=== PATIENT | female | born 1960 | race Asian ===

== ENCOUNTER 2016-12-07 00:51 | Observation (INO) | payer OTHER ==
[~2016-12-07] VITALS: Ht 157.5 cm; Wt 63.5 kg
[2016-12-07] VITALS (12 sets, daily range): BP systolic 107–137; BP diastolic 55–63; PULSE 50–64; RESP 16–20; Ht 157.5 cm; Wt 63.5 kg
[2016-12-07] MEDS ORDERED: ACETAMINOPHEN 325 MG TAB PO PRN (02:30)
[2016-12-07] MEDS ORDERED: AMLODIPINE 5 MG TAB PO SCH (02:30)
[2016-12-07] MEDS ORDERED: ONDANSETRON 4 MG INJ IV PRN (02:30)
[2016-12-07] MEDS ORDERED: HYDROCODONE/APAP (5/325) TAB PO PRN (02:30)
[2016-12-07] MEDS ORDERED: POLYETHYLENE GLYCOL 17 GM PACKET PO PRN (02:30)
[2016-12-07] MEDS ORDERED: GLUCAGON 1 MG INJ IM PRN (03:10)
[2016-12-07] MEDS ORDERED: GLUCOSE GEL 15 GRAM TUBE BUCCAL PRN (03:10)
[2016-12-07] MEDS ORDERED: DEXTROSE 50% 50 ML SYRINGE IV PRN ×2 (03:10)
[2016-12-07] MEDS ORDERED: GLUCOSE GEL 15 GRAM TUBE PO PRN ×2 (03:10)
[2016-12-07] MEDS: INSULIN ASPART [NOVOLOG] 3 ML PEN SC SCH ×5 (08:00→21:00)
[2016-12-07] MEDS ORDERED: RANOLAZINE (SR) 500 MG TAB PO SCH (09:00)
[2016-12-07 10:50] LABS: BASOPHILS % 0.2 % (0.0-2.0); EOSINOPHILS # 0.1 10^3/ul (0.0-0.5); EOSINOPHILS % 1.2 % (0.0-7.0); HEMATOCRIT 33.3 % (37.0-47.0); LYMPHOCYTES # 2.2 10^3/ul (0.8-2.9); LYMPHOCYTES % 38.5 % (15.0-51.0); MEAN CORPUSCULAR HEMOGLOBIN 30.6 pg (29.0-33.0); MEAN CORPUSCULAR VOLUME 92.5 fl (82.0-101.0); MEAN PLATELET VOLUME 10.4 fl (7.4-10.4); MONOCYTE # 0.3 10^3/ul (0.3-0.9); MONOCYTES % 5.4 % (0.0-11.0); NEUTROPHIL # 3.1 10^3/ul (1.6-7.5); NEUTROPHILS % 54.4 % (39.0-77.0); PLATELET COUNT 177 10^3/UL (140-415); RED CELL DISTRIBUTION WIDTH 12.6 % (11.5-14.5); WHITE BLOOD COUNT 5.7 10^3/ul (4.8-10.8)
[2016-12-07 11:07] LABS: CHOL/HDL RATIO 3.9 RATIO
[2016-12-07 11:08] LABS: ALBUMIN 3.8 g/dl (3.3-4.9); ALBUMIN/GLOBULIN RATIO 1.08; BILIRUBIN,INDIRECT 0.6 mg/dl (0-1.1); BILIRUBIN,TOTAL 0.6 mg/dl (0.2-1.3); CALCIUM 9.2 mg/dl (8.4-10.2); CREATININE 0.92 mg/dl (0.44-1.00); TOTAL PROTEIN 7.3 g/dl (6.1-8.1)
--- NOTE | 2016-12-07 13:44 | HP ---
Date/Time of Note Date/Time of Note DATE: 12/07/16 TIME: 12:30 Assessment/Plan VTE Prophylaxis VTE Prophylaxis Intervention: SCD's Lines/Catheters IV [facility]ter [facility]from [facility] Saline Lock Urinary Cath still in place: No Assessment/Plan Assessment/Plan 56-year-old female with: 1. Chest pressure, shortness of breath, acute on chronic, multiple cardiac workup in the past already, unfortunately with a lot of risk factors, she will be getting a stress test today, depending on results she may need an angiogram versus observation overnight with aggressive medical management. Continue current medications Cardiology following Follow-up on 2D echocardiogram results, cardiac enzymes negative and EKG within normal. 2. Coronary artery disease, status post coronary artery bypass surgery, continue current maintenance medications 3. Recent episode of TIA, approximately 5 months ago, patient has been placed on Aggrenox along with Plavix that she already was on, no residual deficit, continue current medications. 4. Hypertension: Continue home medications 5. Hyperlipidemia: Check fasting lipid panel and continue statin therapy 6. Diabetes mellitus, insulin requiring, according to family patient has been having elevated blood sugars. Because her insurance lapsed, apparently she was taking her insulin differently to make it last a little longer. A1c 9.1 will resume her insulin regimen or titrate for better control prophylaxis. Prophylaxis: SCDs for DVT prophylaxis, Pepcid for GI prophylaxis. Disposition: Stress test today, continue medical management HPI/ROS Admit Date/Time Admit Date/Time Dec 07, 2016 at 00:51 Hx of Present Illness Chief complaint: Substernal chest pressure and shortness of breath History of presenting illness: This is a 56-year-old female with hypertension, hyperlipidemia, diabetes mellitus, known coronary artery disease, status post coronary artery bypass surgery, subsequently had 3 more angiograms since then with the latest one done in June 2015 with stent placement, patient was told that she had small vessel disease, she had a recent stress test approximately 5 months ago at her primary personal lines underwriter office and was told that she needed another angiogram the patient has declined so far who presented at [facility] with complaint of worsening chest pressure and shortness of breath. She reports that she has been having exacerbation of her chest pressure over the past 3-4 days. She has been having some amount of chest pressure and dyspnea on exertion since her CABG in 2014. Periodically it worsened, yesterday indeed worsened even more, she had nausea but no vomiting, no diaphoresis. She did not take her sublingual nitro but did call 911 and went to [place]. At [place] she was evaluated by emergency department physician, also by cardiology according to notes, patient reports that she was told that her pain was probably not cardiac in nature however given her multiple risk factors and previous history she will need additional risk stratification and cardiac workup. Patient was therefore transferred to [facility] within network for her cardiac workup. Currently she still having the chest pressure with some shortness of breath. She reports that she has chest pressure with movement chest pressure when sitting up, dyspnea on exertion mainly with chest pressure while walking. She reported that to holding something against her chest does improve her symptoms a little bit. Currently she is denying diaphoresis or nausea or vomiting. EKG here at [facility] shows a normal sinus rhythm with some sinus arrhythmia, cardiac enzymes have been negative 2, one at [place] and one done here at [facility] greater than 8 hours apart. Echocardiogram has been done and pending, stress test also pending. Dr Olsen from cardiology saw the patient and per discussion with cardiology at this point the plan is to do a stress test, if there is large areas of ischemia patient will need a subsequent angiogram, if they are some nonspecific or equivocal findings she will be treated medically aggressively, either way she will stay overnight tonight. We will also plan on a better control of her comorbidities including a diabetes mellitus/blood sugars, hypertension/blood pressure. No fevers, cough, wheezing. She does report postnasal drip especially at night and sometimes nasal congestion. ROS Constitutional: chills, nausea Respiratory: pain, shortness of breath Gastrointestinal: no complaints Genitourinary: no complaints Musculoskeletal: no complaints Skin: no complaints Neurologic: no complaints Endocrine: no complaints Psychological: no complaints PMH/Family/Social Past Medical History Coronary artery disease, status post angiogram 1 prior to bypass surgery, status post coronary artery bypass surgery, status post 3 angiogram post bypass surgery with stent placement. Patient had a recent stress test approximately 5 months ago which apparently warranted subsequent angiogram but patient declined. Hypertension Hyperlipidemia Diabetes mellitus, insulin requiring Chronic chest pain Past Surgical History Status post coronary artery bypass surgery 01/02 Status post cholecystectomy in 2001 Status post ovarian cyst resection remotely Family History Significant Family History: no pertinent family hx Social History Alcohol Use: none Smoking Status: Never smoker Drug Use: none Exam/Review of Systems Vital Signs Vitals Vital Signs Date Time Temp Pulse Resp B/P Pulse Ox O2 Delivery O2 Flow Rate FiO2 12/07/16 12:00 53 12/07/16 08:20 Nasal Cannula 2.0 12/07/16 07:51 98.1 20 107/62 99 Intake and Output 12/06/16 12/06/16 12/07/16 15:00 23:00 07:00 Intake Total 50 ml Balance 50 ml Exam Constitutional: alert, oriented, well developed Respiratory: clear to auscultation, normal air movement Cardiovascular: nl pulses, regular rate and rhythm Gastrointestinal: non-tender, soft Musculoskeletal: nl extremities to inspection Extremities: normal pulses, other (No edema, clubbing or cyanosis) Neurological: DIVING JUDGE II-XII intact, nl mental status, nl speech, nl strength Labs Result Diagram: 12/07/1695612/07/1657 Medications Medications Current Medications Aspirin (Aspirin) 81 mg DAILY PO ; Start 12/07/16 at 09:00 Acetaminophen (Tylenol Tab) 650 mg Q6H PRN PO PAIN AND OR ELEVATED TEMP; Start 12/07/16 at 02:30 Ondansetron HCl (Zofran Inj) 4 mg Q4H PRN IV NAUSEA AND/OR VOMITING; Start at 02:30 Acetaminophen/ Hydrocodone Bitart ([place] (5/325)) 1-2 tabs Q4H PRN PO PAIN Last administered on 12/07/16 02:42; Admin Dose 2 TAB; Start 12/07/16 at 02: 30 Hydralazine HCl (Apresoline) 25 mg Q6H PRN PO hypertension; Start 12/07/16 at 02:30 Amlodipine Besylate (Norvasc) 5 mg BID PO Last administered on 12/07/16 02:42 ; Admin Dose 5 MG; Start 12/07/16 at 02:30 Polyethylene Glycol (Miralax) 17 gm DAILY PRN PO CONSTIPATION; Start 12/07/16 at 02:30 Atorvastatin Calcium (Lipitor) 80 mg HS PO ; Start 12/07/16 at 21:00 Ranolazine (Ranexa) 500 mg Q12 PO ; Start 12/07/16 at 09:00 Clopidogrel Bisulfate (plaVIX) 75 mg DAILY PO ; Start 12/07/16 at 09:00 Metoprolol Tartrate (Lopressor) 50 mg BID PO ; Start 12/07/16 at 09:00 Valsartan (Diovan) 80 mg DAILY PO ; Start 12/07/16 at 09:00 Escitalopram Oxalate (Lexapro) 5 mg DAILY PO ; Start 12/07/16 at 09:00 Diagnostic Test (Pha) (Accu-Chek) 1 ea 02 XX ; Start 12/08/16 at 02:00 Insulin Glargine (Lantus) 12 unit DAILY@20 SC ; Start 12/07/16 at 20:00 Miscellaneous Information 1 ea NOTE XX ; Start 12/07/16 at 03:10 Glucose (Glutose) 15 gm Q15M PRN PO DECREASED GLUCOSE; Start 12/07/16 at 03:10 Glucose (Glutose) 22.5 gm Q15M PRN PO DECREASED GLUCOSE; Start 12/07/16 at 03: 10 Dextrose (D50w Syringe) 25 ml Q15M PRN IV DECREASED GLUCOSE; Start 12/07/16 at 03:10 Dextrose (D50w Syringe) 50 ml Q15M PRN IV DECREASED GLUCOSE; Start 12/07/16 at 03:10 Glucagon (Glucagen) 1 mg Q15M PRN IM DECREASED GLUCOSE; Start 12/07/16 at 03: 10 Glucose (Glutose) 15 gm Q15M PRN BUCCAL DECREASED GLUCOSE; Start 12/07/16 at 03:10 Procedures Procedures EKG with normal sinus rhythm, no acute ischemic or chronic changes AMNA WOODS Dec 07, 2016 13:23
--- NOTE | 2016-12-07 13:52 | RADRPT ---
Echocardiogram Report Patient Name: KARAN MCMAHAN Gender: Female Date: 1960 Study Date: 07-Dec-2016 Senior Corporate Accountant: CHRISTIANO Cortes.[facility] Location: [id number] Ref. Physician: YISSEL THOMAS Quality: Adequate Procedures: Transthoracic echocardiogram with complete 2D, M-Mode, and doppler examination. Indications: Chest Pain. 2D/M Mode Doppler Measurement Value Normal Ranges Measurement Value Normal Ranges LVIDd 2D 3.1 3.5 - 5.6 cm SHANON Vmax 1.1 cm2 LVIDs 2D 2.1 2.1 - 4.1 cm SHANON VTI 1.2 cm2 FS 2D 33.8 % AV Mean Servando 1.2 m/sec LVPWd 2D 1.1 0.6 - 1.1 cm AV Mean PG 6.0 mmHg IVSd 2D 1.1 0.6 - 1.1 cm AV Peak Servando 1.8 m/sec IVS/LVPW 2D 1.0 AV Peak PG 14.0 mmHg AoR Diam 2D 2.0 2.0 - 3.7 cm AV VTI 45.3 cm LA/Ao 2D 1 0 - 1 LVOT Mean Servando 0.8 m/sec EDV 2D 31.0 cm3 LVOT Mean PG 3.0 mmHg ESV 2D 9.0 cm3 LVOT Peak Servando 1.1 m/sec LA Dimen 2D 2.5 2.3 - 4.0 cm LVOT Peak PG 5.0 mmHg LVOT Diam 1.5 cm LVOT VTI 29.9 cm LVOT Area 1.8 cm2 MV E Peak Servando 1.1 m/sec MV A Peak Servando 0.9 m/sec MV E/A 1.1 MV Decel Time 299 msec MV E/A 1.1 TR Peak Servando 3.0 m/sec TR Peak PG 35.0 mmHg RVSP 40.0 mmHg Findings Left Ventricle: Normal left ventricular systolic function. Normal left ventricular cavity size. Mild concentric left ventricular hypertrophy. Ejection fraction is visually estimated at 60 %. Abnormal Diastolic Function. Right Ventricle: Normal right ventricular size. Normal right ventricular systolic function. Left Atrium: The left atrium is normal in size. Right Atrium: The right atrium is normal in size. Mitral Valve: Mitral valve leaflets appear mildly thickened. Mild mitral annular calcification. Mild mitral valve regurgitation. Aortic Valve: Normal appearance of the aortic valve. No significant aortic stenosis or insufficiency. Tricuspid Valve: Normal appearance of the tricuspid valve. Estimated peak PA systolic pressure 40 mmHg. There is mild to moderate tricuspid regurgitation. Pulmonic Valve: Pulmonic valve not well visualized. Pericardium: Normal pericardium with no significant pericardial effusion. Aorta: Normal aortic root. IVC: Normal size and normal respiratory collapse consistent with normal right atrial pressure. Conclusions 1.Normal left ventricular systolic function. Normal left ventricular cavity size. Mild concentric left ventricular hypertrophy. Ejection fraction is visually estimated at 60 %. Abnormal Diastolic Function. 2.Normal right ventricular size. Normal right ventricular systolic function. 3.The left atrium is normal in size. 4.The right atrium is normal in size. 5.Mild mitral valve regurgitation. 6.Estimated peak PA systolic pressure 40 mmHg. There is mild to moderate tricuspid regurgitation. 7.No significant aortic stenosis or insufficiency. 8.Normal pericardium with no significant pericardial effusion. Electronically Signed By: Mitchell Olsen 07-Dec-2016 13:52:31 -0700 Patient Name: KARAN MCMAHAN Study Date: 07-Dec-[id number]
[2016-12-07] MEDS ORDERED: REGADENOSON 0.4 MG/5 ML SYG ONE (14:09)
[2016-12-07] MEDS: ASPIRIN 81 MG TAB PO SCH (15:30)
[2016-12-07] MEDS: ESCITALOPRAM 10 MG TAB PO SCH (15:31)
--- NOTE | 2016-12-07 15:31 | RADRPT ---
PROCEDURE: Lexiscan myocardial perfusion study CLINICAL INDICATION: 56 -year-old patient complaining of chest pain. TECHNIQUE: Lexiscan 0.4 mg intravenously separate acquisition gated myocardial perfusion SPECT usi ng Tc 99m Myoview 30.7 mCi intravenously at stress and Tc-99m Myoview, 10.1 mCi intravenously at res t was performed using the rest/stress sequence. Poststress Myoview SPECT images were obtained in th e supine position. COMPARISON: No prior studies. FINDINGS: Perfusion images reveal no evidence of perfusion defects. Lexiscan post stress gated SPECT images demonstrate no wall motion abnormalities. IMPRESSION: 1. No evidence of perfusion defects. 2. No wall motion abnormalities. 3. The left ventricle ejection fraction at stress is greater than 70%. A call report was made to Dr. Olsen at 03:27 p.m. on December 07, 2016. RPTAT: HH .Eve Llanos MD, Date Time Electronically viewed and signed by .Eve Llanos MD, MD on 12/07/2016 15:31 .L/
[2016-12-07] MEDS: METOPROLOL 50 MG TAB PO SCH ×2 (15:32→21:00)
[2016-12-07] MEDS: CLOPIDOGREL 75 MG TAB PO SCH (15:32)
--- NOTE | 2016-12-07 15:32 | CONS ---
Date/Time of Note Date/Time of Note DATE: 12/07/16 TIME: 15:13 Assessment/Plan Assessment/Plan Additional Assessment/Plan Chest pain CAD with history of CABG and PCI Preserved ejection fraction Normal electrocardiogram Hypertension Dyslipidemia Diabetes Poor medication compliance -Patient with extensive cardiac history with CABG in 2014 and multiple angiograms since then, most recently done May 2015. This was performed at [facility]. Report was seen as well as images were personally reviewed which demonstrated : Cardiac cath May 2015 Left main with mild disease LAD with proximal severe disease, mid to distal vessel seen via PAULSON with moderate diffuse disease in mid to distal LAD Circumflex small to medium caliber vessel with mid severe diffuse disease status post 2 drug-eluting stents performed at that time RCA occluded in the mid vessel but distal vessel seen via saphenous vein graft injection with mild diffuse disease distal RCA PAULSON to LAD is patent SVG to RCA is patent Saphenous vein grafts to diagonal and obtuse marginal were known to be occluded based on the report Based on the above angiogram, patient with small vessel diffuse disease seen on her angiogram. Furthermore, her symptoms at the current time are chest discomfort with deep inspiration and positional which have been ongoing since her CABG. At times her symptoms are worse at times they are better and it does not appear that exertion affects her symptoms but more so inspiration and position.. Furthermore, there has also been issues of medication noncompliance secondary to a lapse in insurance. Serial cardiac enzymes have remained negative, ECG with no significant ischemic abnormalities. Would check d-dimer. Patient currently in the midst of nuclear cardiac perfusion study. In discussion with the patient, she does not want to undergo cardiac catheterization again unless a strong possibility of improving her symptoms. Given review of angiogram, patient with diffuse small vessel disease and would be aggressive with medical management. Continue dual antiplatelet therapy if no contraindication, statin therapy as tolerated, beta-tiffanie as tolerated, continue Ranexa, would DC Norvasc and start Isordil as blood pressure permits. Consultation Date/Type/Reason Admit Date/Time Dec 07, 2016 at 00:51 Type of Consultation: cv Reason for Consultation Chest pain Hx of Present Illness This is a 56-year-old female with extensive past medical history of coronary artery disease status post CABG in 2014 and multiple angiograms after that with most recent being May 2015. Since her CABG, she continues to have complaints of chest pain. Chest pain is worse with deep inspiration and lying down flat. Also walking at times does cause chest pain but it is unclear if secondary to having to breathe deeper. Chest discomfort at times his pressure at times sharp. Since her CABG, she has had multiple angiograms as mentioned. In May 2015, this was performed at [place] and she had multiple stents placed in her circumflex. She does admit to poor medication compliance because of lack of insurance. Also her diabetes has not been well controlled. At the current time , while talking to me, should get complaints of chest discomfort with speaking. 12 point review of system was performed with all pertinent positives and negatives mentioned above and all else is negative Respiratory: pain, shortness of breath Gastrointestinal: no complaints Genitourinary: no complaints Musculoskeletal: no complaints Skin: no complaints Neurologic: no complaints Psychological: no complaints Past Medical History Medical History: coronary artery disease, diabetes, high cholesterol, hypertension Past Surgical History Past Surgical Hx: angioplasty, coronary bypass surgery Social History Alcohol Use: none Smoking Status: Never smoker Drug Use: none Exam/Review of Systems Vital Signs Vitals Vital Signs Date Time Temp Pulse Resp B/P Pulse Ox O2 Delivery O2 Flow Rate FiO2 12/07/16 12:00 53 12/07/16 08:20 Nasal Cannula 2.0 12/07/16 07:51 98.1 20 107/62 99 Intake and Output 12/06/16 12/06/16 12/07/16 15:00 23:00 07:00 Intake Total 50 ml Balance 50 ml Exam No apparent distress, daughter at bedside Constitutional: alert, oriented Head: normocephalic Neck: supple Respiratory: other (Coarse breath sounds bilaterally, no wheezing) Cardiovascular: other (S1-S2 heard), regular rate and rhythm Gastrointestinal: bowel sounds, non-tender, soft Extremities: other (No edema) Results Result Diagram: 12/07/16 0957 12/07/16 0957 Results 24 hrs Laboratory Tests Test 12/07/16 06:16 12/07/16 08:19 12/07/16 09:57 12/07/16 12:04 Troponin I < 0.012 Bedside Glucose 192 172 White Blood Count 5.7 Red Blood Count 3.60 L Hemoglobin 11.0 L Hematocrit 33.3 L Mean Corpuscular Volume 92.5 Mean Corpuscular Hemoglobin 30.6 Mean Corpuscular Hemoglobin Concent 33.0 Red Cell Distribution Width 12.6 Platelet Count 177 Mean Platelet Volume 10.4 Neutrophils % 54.4 Lymphocytes % 38.5 Monocytes % 5.4 Eosinophils % 1.2 Basophils % 0.2 Nucleated Red Blood Cells % 0.0 Neutrophils # 3.1 Lymphocytes # 2.2 Monocytes # 0.3 Eosinophils # 0.1 Basophils # 0.0 Nucleated Red Blood Cells # 0.0 Sodium Level 143 Potassium Level 4.0 Chloride Level 109 Carbon Dioxide Level 26 Anion Gap 12 Blood Urea Nitrogen 18 Creatinine 0.92 Glucose Level 174 Hemoglobin A1c 9.1 H Calcium Level 9.2 Total Bilirubin 0.6 Direct Bilirubin 0.00 Indirect Bilirubin 0.6 Aspartate Amino Transf (AST/SGOT) 15 Alanine Aminotransferase (ALT/SGPT) 24 Alkaline Phosphatase 62 Total Protein 7.3 Albumin 3.8 Globulin 3.50 H Albumin/Globulin Ratio 1.08 Triglycerides Level 149 Cholesterol Level 166 LDL Cholesterol, Calculated 94 HDL Cholesterol 42 Cholesterol/HDL Ratio 3.9 Medications Medications Current Medications Aspirin (Aspirin) 81 mg DAILY PO ; Start 12/07/16 at 09:00 Acetaminophen (Tylenol Tab) 650 mg Q6H PRN PO PAIN AND OR ELEVATED TEMP; Start 12/07/16 at 02:30 Ondansetron HCl (Zofran Inj) 4 mg Q4H PRN IV NAUSEA AND/OR VOMITING; Start at 02:30 Acetaminophen/ Hydrocodone Bitart ([place] (5/325)) 1-2 tabs Q4H PRN PO PAIN Last administered on 12/07/16 02:42; Admin Dose 2 TAB; Start 12/07/16 at 02: 30 Hydralazine HCl (Apresoline) 25 mg Q6H PRN PO hypertension; Start 12/07/16 at 02:30 Amlodipine Besylate (Norvasc) 5 mg BID PO Last administered on 12/07/16 02:42 ; Admin Dose 5 MG; Start 12/07/16 at 02:30 Polyethylene Glycol (Miralax) 17 gm DAILY PRN PO CONSTIPATION; Start 12/07/16 at 02:30 Atorvastatin Calcium (Lipitor) 80 mg HS PO ; Start 12/07/16 at 21:00 Ranolazine (Ranexa) 500 mg Q12 PO ; Start 12/07/16 at 09:00 Clopidogrel Bisulfate (plaVIX) 75 mg DAILY PO ; Start 12/07/16 at 09:00 Metoprolol Tartrate (Lopressor) 50 mg BID PO ; Start 12/07/16 at 09:00 Valsartan (Diovan) 80 mg DAILY PO ; Start 12/07/16 at 09:00 Escitalopram Oxalate (Lexapro) 5 mg DAILY PO ; Start 12/07/16 at 09:00 Diagnostic Test (Pha) (Accu-Chek) 1 ea 02 XX ; Start 12/08/16 at 02:00 Miscellaneous Information 1 ea NOTE XX ; Start 12/07/16 at 03:10 Glucose (Glutose) 15 gm Q15M PRN PO DECREASED GLUCOSE; Start 12/07/16 at 03:10 Glucose (Glutose) 22.5 gm Q15M PRN PO DECREASED GLUCOSE; Start 12/07/16 at 03: 10 Dextrose (D50w Syringe) 25 ml Q15M PRN IV DECREASED GLUCOSE; Start 12/07/16 at 03:10 Dextrose (D50w Syringe) 50 ml Q15M PRN IV DECREASED GLUCOSE; Start 12/07/16 at 03:10 Glucagon (Glucagen) 1 mg Q15M PRN IM DECREASED GLUCOSE; Start 12/07/16 at 03: 10 Glucose (Glutose) 15 gm Q15M PRN BUCCAL DECREASED GLUCOSE; Start 12/07/16 at 03:10 Insulin Glargine (Lantus) 20 unit DAILY@20 SC ; Start 12/07/16 at 20:00 Procedures Procedures ECG with sinus rhythm at 60 bpm, normal QRS duration, no ischemic ST abnormalities seen Mitchell Olsen DO Dec 07, 2016 15:28
[2016-12-07] MEDS: VALSARTAN 80 MG TAB PO SCH (15:33)
[2016-12-07 16:51] LABS: D-DIMER 517.2 ng/ml (<460)
--- NOTE | 2016-12-07 16:57 | RADRPT ---
Vent Rate: 60 bpm RR Interval: 0 msec [place] Interval: 146 msec QRS Duration: 78 msec QT Interval: 428 msec QTC Interval: 428 msec P-R-T Vick[place]: 52 - 21 - 59 degrees Normal sinus rhythm with sinus arrhythmia Normal ECG Electronically Signed By: Scott Franklin [id number]
[2016-12-07] MEDS: RANOLAZINE (SR) 500 MG TAB PO SCH (17:14)
[2016-12-07] MEDS ORDERED: INSULIN GLARGINE [LANtus] 3 ML PEN SC SCH ×2 (20:00)
[2016-12-07] MEDS: ISOSORBIDE DINITRATE 5 MG TAB PO SCH (21:00)
[2016-12-07] MEDS ORDERED: ATORVASTATIN 40 MG TAB PO SCH ×2 (21:00)
[2016-12-08] VITALS (10 sets, daily range): BP systolic 95–139; BP diastolic 48–63; PULSE 59–74; RESP 15–19
[2016-12-08] MEDS ORDERED: ACCU-CHEK XX SCH ×2 (02:00)
[2016-12-08] MEDS: ESCITALOPRAM 10 MG TAB PO SCH (08:26)
[2016-12-08] MEDS: RANOLAZINE (SR) 500 MG TAB PO SCH (08:26)
[2016-12-08] MEDS: CLOPIDOGREL 75 MG TAB PO SCH (08:27)
[2016-12-08] MEDS: ASPIRIN 81 MG TAB PO SCH (08:27)
[2016-12-08] MEDS: ISOSORBIDE DINITRATE 5 MG TAB PO SCH ×2 (08:27→13:16)
[2016-12-08] MEDS: METOPROLOL 50 MG TAB PO SCH (08:28)
[2016-12-08] MEDS: VALSARTAN 80 MG TAB PO SCH (08:28)
[2016-12-08] MEDS: INSULIN ASPART [NOVOLOG] 3 ML PEN SC SCH ×6 (08:31→18:05)
[2016-12-08 09:18] LABS: BASOPHILS % 0.1 % (0.0-2.0); EOSINOPHILS # 0.1 10^3/ul (0.0-0.5); EOSINOPHILS % 1.1 % (0.0-7.0); HEMATOCRIT 33.9 % (37.0-47.0); HEMOGLOBIN 11.2 g/dl (12.0-16.0); LYMPHOCYTES # 1.8 10^3/ul (0.8-2.9); LYMPHOCYTES % 25.8 % (15.0-51.0); MEAN CORPUSCULAR HEMOGLOBIN 30.7 pg (29.0-33.0); MEAN CORPUSCULAR VOLUME 92.9 fl (82.0-101.0); MEAN PLATELET VOLUME 10.1 fl (7.4-10.4); MONOCYTE # 0.3 10^3/ul (0.3-0.9); MONOCYTES % 4.8 % (0.0-11.0); NEUTROPHIL # 4.8 10^3/ul (1.6-7.5); NEUTROPHILS % 67.8 % (39.0-77.0); PLATELET COUNT 206 10^3/UL (140-415); RED BLOOD COUNT 3.65 10^6/ul (4.20-5.40); RED CELL DISTRIBUTION WIDTH 12.3 % (11.5-14.5)
[2016-12-08 09:48] LABS: MAGNESIUM 1.8 mg/dl (1.7-2.5); PHOSPHORUS 3.9 mg/dl (2.5-4.9)
[2016-12-08 09:52] LABS: ALBUMIN 3.8 g/dl (3.3-4.9); ALBUMIN/GLOBULIN RATIO 1.02; BILIRUBIN,INDIRECT 1.1 mg/dl (0-1.1); BILIRUBIN,TOTAL 1.1 mg/dl (0.2-1.3); CALCIUM 9.3 mg/dl (8.4-10.2); CREATININE 0.94 mg/dl (0.44-1.00); POTASSIUM 4.3 mmol/L (3.5-5.1); TOTAL PROTEIN 7.5 g/dl (6.1-8.1)
--- NOTE | 2016-12-08 13:16 | PN ---
Date/Time of Note Date/Time of Note DATE: 12/08/16 TIME: 13:15 Assessment/Plan VTE Prophylaxis VTE Prophylaxis Intervention: SCD's Lines/Catheters IV Catheter Type (from [facility]): Saline Lock Urinary Cath still in place: No Assessment/Plan Assessment/Plan Chest pain CAD with history of CABG and PCI Preserved ejection fraction Normal electrocardiogram Hypertension Dyslipidemia Diabetes Poor medication compliance -Patient with extensive cardiac history with CABG in 2014 and multiple angiograms since then, most recently done May 2015. This was performed at [facility]. Cardiac cath May 2015 Left main with mild disease LAD with proximal severe disease, mid to distal vessel seen via PAULSON with moderate diffuse disease in mid to distal LAD Circumflex small to medium caliber vessel with mid severe diffuse disease status post 2 drug-eluting stents performed at that time RCA occluded in the mid vessel but distal vessel seen via saphenous vein graft injection with mild diffuse disease distal RCA PAULSON to LAD is patent SVG to RCA is patent Saphenous vein grafts to diagonal and obtuse marginal were known to be occluded based on the report Based on the above angiogram, patient with small vessel diffuse disease seen on her angiogram. Furthermore, her symptoms at the current time are chest discomfort with deep inspiration and positional which have been ongoing since her CABG. At times her symptoms are worse at times they are better and it does not appear that exertion affects her symptoms but more so inspiration and position.. Furthermore, there has also been issues of medication noncompliance secondary to a lapse in insurance. Serial cardiac enzymes have remained negative, ECG with no significant ischemic abnormalities. Would check d-dimer. Patient currently in the midst of nuclear cardiac perfusion study. In discussion with the patient, she does not want to undergo cardiac catheterization again unless a strong possibility of improving her symptoms. Given review of angiogram, patient with diffuse small vessel disease and would be aggressive with medical management. Continue dual antiplatelet therapy if no contraindication, statin therapy as tolerated, beta-tiffanie as tolerated, continue Ranexa, would DC Norvasc and start Isordil as blood pressure permits. Subjective 24 Hr Interval Summary Free Text/Dictation the patient with no cahgne Exam/Review of Systems Vital Signs Vitals Vital Signs Date Time Temp Pulse Resp B/P Pulse Ox O2 Delivery O2 Flow Rate FiO2 12/08/16 12:13 60 12/08/16 11:32 99.3 19 139/63 98 12/07/16 08:20 Nasal Cannula 2.0 Intake and Output 12/07/16 12/07/16 12/08/16 15:00 23:00 07:00 Intake Total 500 ml 770 ml Balance 500 ml 770 ml Results Result Diagram: 12/08/16 0836 12/08/16 0836 Results 24 hrs Laboratory Tests Test 12/07/16 16:05 12/07/16 17:18 12/07/16 20:55 12/08/16 08:17 D-Dimer 517.20 H D-Dimer Comment Bedside Glucose 213 160 147 Test 12/08/16 08:36 12/08/16 12:54 White Blood Count 7.0 # Red Blood Count 3.65 L Hemoglobin 11.2 L Hematocrit 33.9 L Mean Corpuscular Volume 92.9 Mean Corpuscular Hemoglobin 30.7 Mean Corpuscular Hemoglobin Concent 33.0 Red Cell Distribution Width 12.3 Platelet Count 206 Mean Platelet Volume 10.1 Neutrophils % 67.8 Lymphocytes % 25.8 Monocytes % 4.8 Eosinophils % 1.1 Basophils % 0.1 Nucleated Red Blood Cells % 0.0 Neutrophils # 4.8 Lymphocytes # 1.8 Monocytes # 0.3 Eosinophils # 0.1 Basophils # 0.0 Nucleated Red Blood Cells # 0.0 Sodium Level 142 Potassium Level 4.3 Chloride Level 105 Carbon Dioxide Level 30 Anion Gap 11 Blood Urea Nitrogen 18 Creatinine 0.94 Glucose Level 155 Calcium Level 9.3 Phosphorus Level 3.9 Magnesium Level 1.8 Total Bilirubin 1.1 Direct Bilirubin 0.00 Indirect Bilirubin 1.1 Aspartate Amino Transf (AST/SGOT) 18 Alanine Aminotransferase (ALT/SGPT) 23 Alkaline Phosphatase 63 Total Protein 7.5 Albumin 3.8 Globulin 3.70 H Albumin/Globulin Ratio 1.02 Bedside Glucose 148 Medications Medications Current Medications Aspirin (Aspirin) 81 mg DAILY PO Last administered on 12/08/16 08:27; Admin Dose 81 MG; Start 12/07/16 at 09:00 Acetaminophen (Tylenol Tab) 650 mg Q6H PRN PO PAIN AND OR ELEVATED TEMP; Start 12/07/16 at 02:30 Ondansetron HCl (Zofran Inj) 4 mg Q4H PRN IV NAUSEA AND/OR VOMITING Last administered on 12/08/16 00:36; Admin Dose 4 MG; Start 12/07/16 at 02:30 Acetaminophen/ Hydrocodone Bitart ([place] (5/325)) 1-2 tabs Q4H PRN PO PAIN Last administered on 12/07/16 02:42; Admin Dose 2 TAB; Start 12/07/16 at 02: 30 Hydralazine HCl (Apresoline) 25 mg Q6H PRN PO hypertension; Start 12/07/16 at 02:30 Polyethylene Glycol (Miralax) 17 gm DAILY PRN PO CONSTIPATION Last administered on 12/08/16 08:29; Admin Dose 17 GM; Start 12/07/16 at 02:30 Atorvastatin Calcium (Lipitor) 80 mg HS PO Last administered on 12/07/16 20: 59; Admin Dose 80 MG; Start 12/07/16 at 21:00 Clopidogrel Bisulfate (plaVIX) 75 mg DAILY PO Last administered on 12/08/16 08:27; Admin Dose 75 MG; Start 12/07/16 at 09:00 Metoprolol Tartrate (Lopressor) 50 mg BID PO Last administered on 12/07/16 15 :32; Admin Dose 50 MG; Start 12/07/16 at 09:00 Valsartan (Diovan) 80 mg DAILY PO Last administered on 12/08/16 08:28; Admin Dose 80 MG; Start 12/07/16 at 09:00 Escitalopram Oxalate (Lexapro) 5 mg DAILY PO Last administered on 12/08/16 08 :26; Admin Dose 5 MG; Start 12/07/16 at 09:00 Diagnostic Test (Pha) (Accu-Chek) 1 ea 02 XX ; Start 12/08/16 at 02:00 Miscellaneous Information 1 ea NOTE XX ; Start 12/07/16 at 03:10 Glucose (Glutose) 15 gm Q15M PRN PO DECREASED GLUCOSE; Start 12/07/16 at 03:10 Glucose (Glutose) 22.5 gm Q15M PRN PO DECREASED GLUCOSE; Start 12/07/16 at 03: 10 Dextrose (D50w Syringe) 25 ml Q15M PRN IV DECREASED GLUCOSE; Start 12/07/16 at 03:10 Dextrose (D50w Syringe) 50 ml Q15M PRN IV DECREASED GLUCOSE; Start 12/07/16 at 03:10 Glucagon (Glucagen) 1 mg Q15M PRN IM DECREASED GLUCOSE; Start 12/07/16 at 03: 10 Glucose (Glutose) 15 gm Q15M PRN BUCCAL DECREASED GLUCOSE; Start 12/07/16 at 03:10 Insulin Glargine (Lantus) 20 unit DAILY@20 SC Last administered on 12/07/16 21:30; Admin Dose 20 UNIT; Start 12/07/16 at 20:00 Ranolazine (Ranexa) 1,000 mg Q12 PO Last administered on 12/08/16 08:26; Admin Dose 1,000 MG; Start 12/07/16 at 17:00 Isosorbide Dinitrate (Isordil) 5 mg TID PO ; Start 12/07/16 at 21:00 SUSU TREADWELL MD Dec 08, 2016 13:16
--- NOTE | 2016-12-08 16:05 | PDOCDIS ---
Discharge Instructions DIAGNOSIS Discharge Diagnosis Costochondritis CONDITION Patient Condition: Good HOME CARE INSTRUCTIONS: Diet Instructions: Diabetic diet ACTIVITY: Activity Restrictions: Slowly Increase Activity FOLLOW UP/APPOINTMENTS Follow-up Plan Dr Xin Harkins (PCP) in the next week, to address musculoskeletal chest pain and uncontrolled diabetes VILLA NGUYEN M.D. Dec 08, 2016 16:05
[2016-12-08] MEDS ORDERED: CLOP75TA28 PO (16:18)
[2016-12-08] MEDS ORDERED: METO-429 PO (16:18)
[2016-12-08] MEDS ORDERED: NAPR220C2 PO (16:18)
[2016-12-08] MEDS ORDERED: VALS80TA2 PO (16:18)
[2016-12-08] MEDS ORDERED: RANO500T2 PO (16:18)
[2016-12-08] MEDS ORDERED: ESCI10TA48 PO (16:18)
[2016-12-08] MEDS ORDERED: ISOS5TAB2 PO (16:18)
[2016-12-08] MEDS ORDERED: ATOR40TA68 PO (16:18)
[2016-12-08] MEDS ORDERED: LANT3I SC (16:18)
[2016-12-08] MEDS ORDERED: NOVO3I SC (16:18)
[2016-12-08] MEDS ORDERED: FAMO20TA18 PO (16:18)
[2016-12-08] MEDS ORDERED: ASPI81TA3 PO (16:18)
--- NOTE | 2016-12-08 16:27 | DS ---
Date/Time of Note Date/Time of Note DATE: 12/08/16 TIME: 16:20 Discharge Summary Admission/Discharge Info Admit Date/Time Dec 07, 2016 at 00:51 Discharge Date/Time Dec 08, 2016 Discharge Diagnosis Costochondritis Patient Condition: Good Procedures LexiScan Hx of Present Illness Chief complaint: Substernal chest pressure and shortness of breath Ms. Lake is a 56-year-old woman with hypertension, hyperlipidemia, diabetes mellitus, known coronary artery disease, status post coronary artery bypass surgery, and who has had subsequently three more angiograms (most recently June 2015 with stent placement). 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 She presented at [facility] with complaint of worsening chest pressure and shortness of breath for 3-4 days, with increased discomfort on deep breathing. But she has had chest pressure and dyspnea on exertion since her CABG in 2014. The day prior to admission she had nausea with some dizziness but no vomiting, and no radiation or diaphoresis. She did not take her sublingual nitro but did call 911 and went to [place]. At [place] she was evaluated by emergency department physician, also by cardiology according to notes, patient reports that she was told that her pain was probably not cardiac in nature. But patient was transferred to [facility] within network for her cardiac workup. Hospital Course In the [facility] ER she was still having the chest pressure with some shortness of breath. She reports that she has chest pressure with movement chest pressure when sitting up, dyspnea on exertion mainly with chest pressure while walking. She reported that holding something against her chest does improve her symptoms a little bit. EKG at [facility] showed a normal sinus rhythm with sinus arrhythmia. Cardiac enzymes were negative 3, one at [place] and two done here at [facility]. Echocardiogram showed EF 60%, but with mild mitral valve regurgitation and estimated peak PA systolic pressure 40 mmHg (c/w diastolic dysfunction). Stress testing showed no perfusion defects. On exam this afternoon, she had very focal left chest wall tenderness, which reproduced her pain, and I felt was consistent with costochondritis. Her labs were notable for elevated HgbA1c of 9.9%, though sugars were better-controlled her in the hospital. I reviewed our findings with her, and suggested occasional use of a heating pad on the chest and Aleve (naproxen) OTC as needed. Because of her anti-platelet therapy (asa and plavix), we will also add famotidine twice daily to help protect against gastritis from the naproxen until the costochondritis is resolved. Home Meds Active Scripts Famotidine* (Famotidine*) 20 Mg Tablet, 20 MG PO BID, #60 TAB Prov:VILLA NGUYEN M.D. 12/08/16 Naproxen* (Aleve*) 220 Mg Capsule, 220 MG PO BID Y for CHEST PAIN, #60 CAP Prov:VILLA NGUYEN M.D. 12/08/16 Insulin Glargine* (Lantus*) 100 Unit/Ml Soln, 20 UNIT SC DAILY@20 for 30 Days Prov:VILLA NGUYEN M.D. 12/08/16 Insulin Aspart* (Novolog Insulin Pen*) 100 Unit/Ml Soln, 6 UNIT SC WITH MEALS for 30 Days Prov:VILLA NGUYEN M.D. 12/08/16 Escitalopram Oxalate* (Escitalopram Oxalate*) 10 Mg Tablet, 5 MG PO DAILY for 30 Days, TAB Prov:VILLA NGUYEN M.D. 12/08/16 Aspirin (Aspirin) 81 Mg Chew, 81 MG PO DAILY for 30 Days, TAB Prov:VILLA NGUYEN M.D. 12/08/16 Valsartan* (Diovan*) 80 Mg Tablet, 80 MG PO DAILY for 30 Days, TAB Prov:VILLA NGUYEN M.D. 12/08/16 Ranolazine* (Ranexa*) 500 Mg Tab.sr.12h, 1000 MG PO Q12 for 30 Days, TAB Prov:VILLA NGUYEN M.D. 12/08/16 Metoprolol Tartrate* (Lopressor*) 50 Mg Tab, 50 MG PO BID for 30 Days, TAB Prov:VILLA NGUYEN M.D. 12/08/16 Isosorbide Dinitrate* (Isordil*) 5 Mg Tab, 5 MG PO TID for 30 Days, TAB Prov:VILLA NGUYEN M.D. 12/08/16 Atorvastatin* (Atorvastatin*) 40 Mg Tablet, 80 MG PO HS for 30 Days, TAB Prov:VILLA NGUYEN M.D. 12/08/16 Clopidogrel Bisulfate (Clopidogrel) 75 Mg Tablet, 75 MG PO DAILY for 30 Days, TAB Prov:VILLA NGUYEN M.D. 12/08/16 Follow-up Plan Dr Xin Harkins (PCP) in the next week, to address musculoskeletal chest pain and uncontrolled diabetes Primary Care Provider Xin Harkins Time spent on discharge: > 30 minutes Pending Labs Laboratory Tests Test 12/07/16 17:18 12/07/16 20:55 12/08/16 08:17 12/08/16 08:36 Bedside Glucose 213mg/dL (70-220) 160mg/dL (70-220) 147mg/dL (70-220) White Blood Count 7.010^3/ul (4.8-10.8) Red Blood Count 3.6510^6/ul (4.20-5.40) Hemoglobin 11.2g/dl (12.0-16.0) Hematocrit 33.9% (37.0-47.0) Mean Corpuscular Volume 92.9fl (82.0-101.0) Mean Corpuscular Hemoglobin 30.7pg (29.0-33.0) Mean Corpuscular Hemoglobin Concent 33.0g/dl (32.0-37.0) Red Cell Distribution Width 12.3% (11.5-14.5) Platelet Count 68043^3/UL (140-415) Mean Platelet Volume 10.1fl (7.4-10.4) Neutrophils % 67.8% (39.0-77.0) Lymphocytes % 25.8% (15.0-51.0) Monocytes % 4.8% (0.0-11.0) Eosinophils % 1.1% (0.0-7.0) Basophils % 0.1% (0.0-2.0) Nucleated Red Blood Cells % 0.0/100WBC (0.0-0.0) Neutrophils # 4.810^3/ul (1.6-7.5) Lymphocytes # 1.810^3/ul (0.8-2.9) Monocytes # 0.310^3/ul (0.3-0.9) Eosinophils # 0.110^3/ul (0.0-0.5) Basophils # 0.010^3/ul (0.0-0.1) Nucleated Red Blood Cells # 0.010^3/ul (0.0-0.0) Sodium Level 142mmol/L (135-144) Potassium Level 4.3mmol/L (3.5-5.1) Chloride Level 105mmol/L (97-110) Carbon Dioxide Level 30mmol/L (21-31) Anion Gap 11 (8-16) Blood Urea Nitrogen 18mg/dl (7-20) Creatinine 0.94mg/dl (0.44-1.00) Glucose Level 155mg/dl (70-220) Calcium Level 9.3mg/dl (8.4-10.2) Phosphorus Level 3.9mg/dl (2.5-4.9) Magnesium Level 1.8mg/dl (1.7-2.5) Total Bilirubin 1.1mg/dl (0.2-1.3) Direct Bilirubin 0.00mg/dl (0.00-0.20) Indirect Bilirubin 1.1mg/dl (0-1.1) Aspartate Amino Transf (AST/SGOT) 18IU/L (15-46) Alanine Aminotransferase (ALT/SGPT) 23IU/L (13-69) Alkaline Phosphatase 63IU/L (42-121) Total Protein 7.5g/dl (6.1-8.1) Albumin 3.8g/dl (3.3-4.9) Globulin 3.70g/dl (1.3-3.2) Albumin/Globulin Ratio 1.02 Test 12/08/16 12:54 12/08/16 14:14 Bedside Glucose 148mg/dL (70-220) 127mg/dL (70-220) VILLA NGUYEN M.D. Dec 08, 2016 16:27
--- NOTE | 2016-12-13 14:26 | EN ---
Date/Time of Note Date/Time of Note DATE: 12/13/16 TIME: 14:22 Event Note Cardiology Cardiology Event Note Lexiscan nuclear ECG report 12/07/2016 This is a 56-year-old female with symptoms of chest pain Baseline ECG sinus bradycardia 54 bpm, nonspecific ST abnormalities Baseline blood pressure 165/74 Lexiscan was a medicine as per protocol Symptoms of shortness of breath and chest pain which resolved in recovery Peak heart rate 104 Peak blood pressure 199/84 ECG changes less than [address] depressions lateral and inferior leads ECG interpretation nonischemic The nuclear portion will be interpreted by radiology colleagues. Mitchell Olsen DO Dec 13, 2016 14:26
== END 2016-12-08 19:20 | disposition home or self-care (01) ==
LOC: MS4 00:51 → INTOOBSV 00:51
PROVIDERS: ADMIT Legal Medicine; ATTEND Legal Medicine
DX: M94.0 Chondrocostal junction syndrome [Tietze] (principal); I25.10 Atherosclerotic heart disease of native coronary artery without angina pectoris; Z95.1 Presence of aortocoronary bypass graft; I10 Essential (primary) hypertension; E78.5 Hyperlipidemia, unspecified; E11.9 Type 2 diabetes mellitus without complications; Z79.4 Long term (current) use of insulin; Z79.82 Long term (current) use of aspirin
CPT/HCPCS: 78452; 80053; 80061; 82962; 83036; 83735; 84100; 84484; 85025; 85378; 93005; 93017; 93306; 96372; 96374; A9500; A9505; J1815; J2405; J2785; Z7500; Z7610; G0378